=== PATIENT | female | born 1995 | race African-American/Black ===

== ENCOUNTER 2016-08-11 10:05 | Emergency (ER) | payer OTHER ==
[~2016-08-11] VITALS: Ht 180.3 cm; Wt 76.3 kg
[2016-08-11 10:05] VITALS: TEMP 39; Ht 180.3 cm; Wt 76.3 kg
[2016-08-11] MEDS ORDERED: KETOROLAC TROMETHAMINE 30 MG/ML VIAL IV STA (10:31)
[2016-08-11] MEDS ORDERED: SODIUM CHLORIDE 0.9% 1000ML 1,000 ML IV STA ×2 (10:31→13:16)
--- NOTE | 2016-08-11 10:39 | EMERGENCY ROOM VISIT NOTE ---
History Report prepared by Sari: Brian Thomason Under the Supervision of: Dr. Leeroy Osman D.O. First contact with patient: 10:23 Stated Complaint: SYNCOPE History of Present Illness The patient is a 21 year old female who presents to the Emergency Room with complaints of a sudden syncopal episode beginning just prior to arrival. She associates a cough, congestion, body aches, dizziness, and lightheadedness with today's symptoms. The patient notes she developed a cold two days ago and has been eating and drinking less than usual. She states she is currently on her menstrual period, but it is normal. The patient notes she went to the [employer] today to get Gatorade and saltines, when she became nauseous , dizzy, and her vision went blurry. She denies sick contact. The patient notes a history of asthma and tonsillectomy. Source of History: patient Onset: just prior to arrival Position: other (global) Quality: other (syncope) Timing: other (sudden) Associated Symptoms: + cough Note: Associated symptoms: congestion, body aches, dizziness, lightheadedness. Review of Systems See HPI for pertinent positives & negatives. A total of 10 systems reviewed and were otherwise negative. Past Medical & Surgical Medical Problems: (1) Asthma Surgical Problems: (1) S/P tonsillectomy Family History Patient reports no known family medical history. Social History Marital Status: single Housing Status: lives alone Occupation Status: [employer] student Current/Historical Medications No Active Prescriptions or Reported Meds Allergies Coded Allergies: No Known Allergies (Unverified , 08/11/16) Physical Exam Vital Signs Date Time Temp Pulse Resp B/P Pulse Ox O2 Delivery O2 Flow Rate FiO2 08/11/16 13:51 61 18 109/65 100 Room Air 08/11/16 11:47 89 18 130/82 100 Room Air 08/11/16 11:09 109 08/11/16 10:05 39.0 104 20 126/92 100 Room Air Physical Exam GENERAL: Patient is awake, alert, and in no acute distress. Patient is resting comfortably and showing no signs of anxiety EYES: The conjunctivae are clear. The pupils are round and reactive. EARS, NOSE, MOUTH AND THROAT: The nose is without any evidence of any deformity. Clear rhinorrhea noted bilaterally. Mucous membranes are moist. No erythema in the posterior oral pharynx. NECK: The neck is nontender and supple. RESPIRATORY: Scattered rhonchi noted throughout. Diminished breath sounds in right upper lung field. No tachypnea or conversational dyspnea. CARDIOVASCULAR: Regular rate and rhythm noted there no murmurs rubs or gallops normal S1 normal S2 GASTROINTESTINAL: The abdomen is soft. Bowel sounds are present in all quadrants. Abdomen is nontender MUSCULOSKELETAL/EXTREMITIES: There is no evidence of gross deformity full range of motion is noted in the hips and shoulders SKIN: There is no obvious evidence of any rash. There are no petechiae, pallor or cyanosis noted. NEUROLOGIC: Patient is awake alert and oriented x3 strength is symmetric patellar reflexes are 2+ bilaterally Medical Decision & Procedures ER Provider Diagnostic Interpretation: X-ray results as stated below per interpretation by me and the radiologist. CHEST ONE VIEW PORTABLE CLINICAL HISTORY: Syncope. COMPARISON STUDY: No previous studies for comparison. FINDINGS: Lung volumes are normal. There is no pneumothorax or pleural effusion. Cardiac size is normal. Mediastinal contours are normal. There is equivocal left perihilar opacity. IMPRESSION: Equivocal left perihilar opacity. This likely reflects normal vessels although a small area of pneumonia could appear similar. Radiographic follow-up is recommended with PA and lateral chest radiographs in one month. Electronically signed by: Jaren Jimenez M.D. 08/11/2016 10:45 AM Laboratory Results 08/11/16 11:42 Red Blood Count 5.48, Mean Corpuscular Volume 73.4, Mean Corpuscular Hemoglobin 25.2, Mean Corpuscular Hemoglobin Concent 34.3, Mean Platelet Volume 10.3, Neutrophils (%) (Auto) 82.2, Lymphocytes (%) (Auto) 8.6, Monocytes (%) (Auto) 8.7, Eosinophils (%) (Auto) 0.2, Basophils (%) (Auto) 0.1, Neutrophils # (Auto) 7.46, Lymphocytes # (Auto) 0.78, Monocytes # (Auto) 0.79, Eosinophils # (Auto) 0.02, Basophils # (Auto) 0.01 08/11/16 11:42 Test 08/11/16 10:21 08/11/16 11:30 08/11/16 11:42 Urine Color YELLOW Urine Appearance CLEAR (CLEAR) Urine pH 6.5 (4.5-7.5) Urine Specific [place] 1.014 (1.000-1.030) Urine Protein NEG (NEG) Urine Glucose (UA) NEG (NEG) Urine Ketones NEG (NEG) Urine Occult Blood 1+ (NEG) Urine Nitrite NEG (NEG) Urine Bilirubin NEG (NEG) Urine Urobilinogen NEG (NEG) Urine Leukocyte Esterase NEG (NEG) Urine WBC (Auto) 1-5 /hpf (0-5) Urine RBC (Auto) 0-4 /hpf (0-4) Urine Hyaline Casts (Auto) 0 /lpf (0-5) Urine Epithelial Cells (Auto) >30 /lpf (0-5) Urine Bacteria (Auto) NEG (NEG) Urine Test NEG (NEG) Influenza Type A Antigen Neg for Influ A (NEG) Influenza Type B Antigen POS for Influ B (NEG) White Blood Count 9.08 K/uL (4.8-10.8) Red Blood Count 5.48 M/uL (4.2-5.4) Hemoglobin 13.8 g/dL (12.0-16.0) Hematocrit 40.2 % (37-47) Mean Corpuscular Volume 73.4 fL (80-100) Mean Corpuscular Hemoglobin 25.2 pg (25-34) Mean Corpuscular Hemoglobin Concent 34.3 g/dl (32-36) Platelet Count 226 K/uL (130-400) Mean Platelet Volume 10.3 fL (7.4-10.4) Neutrophils (%) (Auto) 82.2 % Lymphocytes (%) (Auto) 8.6 % Monocytes (%) (Auto) 8.7 % Eosinophils (%) (Auto) 0.2 % Basophils (%) (Auto) 0.1 % Neutrophils # (Auto) 7.46 K/uL (1.4-6.5) Lymphocytes # (Auto) 0.78 K/uL (1.2-3.4) Monocytes # (Auto) 0.79 K/uL (0.11-0.59) Eosinophils # (Auto) 0.02 K/uL (0-0.5) Basophils # (Auto) 0.01 K/uL (0-0.2) RDW Standard Deviation 38.9 fL (36.4-46.3) RDW Coefficient of Variation 14.7 % (11.5-14.5) Immature Granulocyte % (Auto) 0.2 % Immature Granulocyte # (Auto) 0.02 K/uL (0.00-0.02) Red Blood Cell Morphology Unremarkable Anion Gap 9.0 mmol/L (3-11) Est Creatinine Clear Calc Drug Dose 130.2 ml/min Estimated GFR () 128.8 Estimated GFR (Non- 111.1 BUN/Creatinine Ratio 11.1 (10-20) Calcium Level 9.0 mg/dl (8.5-10.1) Total Bilirubin 0.2 mg/dl (0.2-1) Direct Bilirubin < 0.1 mg/dl (0-0.2) Aspartate Amino Transf (AST/SGOT) 15 U/L (15-37) Alanine Aminotransferase (ALT/SGPT) 17 U/L (12-78) Alkaline Phosphatase 45 U/L (45-117) Troponin I < 0.015 ng/ml (0-0.045) Total Protein 8.1 gm/dl (6.4-8.2) Albumin 3.8 gm/dl (3.4-5.0) Lipase 111 U/L (73-393) Laboratory results per my review. Medications Administered Medications (Trade) Dose Ordered Sig/Liyah Route Start Time Stop Time Status Last Admin Dose Admin Ketorolac Tromethamine 30 mg 30 mg NOW STAT IV 08/11/16 10:31 08/11/16 10:32 DC 08/11/16 11:45 30 MG Sodium Chloride (Nss 1000ml) 1,000 ml @ 999 mls/hr Q1H1M STAT IV 08/11/16 10:31 08/11/16 11:31 DC 08/11/16 10:31 999 MLS/HR Acetaminophen 1000 mg 1,000 mg NOW STAT PO 08/11/16 12:19 08/11/16 12:20 DC 08/11/16 12:44 1,000 MG Sodium Chloride (Nss 1000ml) 1,000 ml @ 999 mls/hr Q1H1M STAT IV 08/11/16 13:16 08/11/16 14:16 DC 08/11/16 13:16 999 MLS/HR ECG Indication: syncope Rate (beats per minute): 105 Rhythm: sinus tachycardia Findings: no ectopy, other (No acute ST segment abnormalities) Comparison ECG Date: no prior available ED Course 1027: The patient was evaluated in room A3. A complete history and physical examination were performed. 1031: Ordered Sodium Chloride 1,000 ml @ 999 mls/hr IV, Toradol Inj 30 mg IV. 1216: Reevaluated and updated the patient at this time. 1219: Ordered Tylenol Tab 1,000 mg PO. 1315: Reevaluated and updated the patient at this time. 1316: Ordered Sodium Chloride 1,000 ml @ 999 mls/hr IV. 1410: Upon reevaluation, the patient is doing well. I discussed the results and treatment plan with her. She verbalized agreement of the treatment plan. The patient was discharged home. Medical Decision Etiologies such as vasovagal event, infection, hypoglycemia, electrolyte abnormalities, cardiac sources, intracerebral event, toxicologic, neurologic, as well as others were entertained. Nursing notes reviewed. The patient is a 21-year-old female who presented to the emergency department for an evaluation after having a syncopal episode. The patient has been feeling as though she had a febrile illness with URI symptoms. The patient was found have a positive influenza screen. She was treated with IV fluids IV pain medication in the emergency department. I discussed the patient's laboratory and radiographic studies with her. She was encouraged to rest and avoid any strenuous activity. She started having symptoms more than 48 hours ago so I do not feel Tamiflu would be indicated in this patient although she does have a history of asthma. I discussed follow-up with the patient. I encouraged her to rest and avoid any strenuous activity. She was encouraged to drink plenty clear liquids. She was also encouraged to follow-up with [facility] this week for reevaluation and for further studies including echocardiogram and Holter monitor. She was also encouraged return to emergency department immediately if symptoms change worsen or the need arises. Impression Primary Impression: Syncope Additional Impression: Influenza Scribe Attestation The scribe's documentation has been prepared under my direction and personally reviewed by me in its entirety. I confirm that the note above accurately reflects all work, treatment, procedures, and medical decision making performed by me. Departure Information Dispostion Home / Self-Care Prescriptions No Active Prescriptions or Reported Meds Forms HOME CARE DOCUMENTATION FORM, IMPORTANT VISIT INFORMATION Patient Instructions ED Flu, [facility], Syncope Additional Instructions Continue all medications as prescribed. Drink plenty clear liquids. Continue using Motrin and Tylenol as directed for fever and body aches. Follow-up with [facility] this week for reevaluation. Problem Qualifiers Primary Impression: Syncope Syncope type: unspecified Qualified Codes: R55 - Syncope and collapse
--- NOTE | 2016-08-11 10:46 | DIAGNOSTIC IMAGING REPORT ---
CHEST ONE VIEW PORTABLE CLINICAL HISTORY: Syncope. COMPARISON STUDY: No previous studies for comparison. FINDINGS: Lung volumes are normal. There is no pneumothorax or pleural effusion. Cardiac size is normal. Mediastinal contours are normal. There is equivocal left perihilar opacity. IMPRESSION: Equivocal left perihilar opacity. This likely reflects normal vessels although a small area of pneumonia could appear similar. Radiographic follow-up is recommended with PA and lateral chest radiographs in one month. Electronically signed by: Jaren Jimenez M.D. 08/11/2016 10:45 AM Dictated Date/Time: 08/11/2016 10:43 AM
[2016-08-11 10:59] LABS: URINE APPEARANCE CLEAR (CLEAR); URINE BILIRUBIN NEG (NEG); URINE COLOR YELLOW; URINE EPITHELIAL CELL AUTO >30 /lpf (0-5); URINE NITRITE NEG (NEG); URINE PH 6.5 (4.5-7.5); URINE SPECIFIC GRAVITY 1.014 (1.000-1.030); UROBILINOGEN NEG (NEG)
[2016-08-11 11:06] LABS: MANUAL MICROSCOPIC REQUIRED? NO; REVIEW REQ? NO
[2016-08-11 11:50] LABS: BASO % 0.1 %; BASO ABS # 0.01 K/uL (0-0.2); EOS % 0.2 %; HEMATOCRIT 40.2 % (37-47); IG% 0.2 %; LYMPH % 8.6 %; LYMPH ABS # 0.78 K/uL (1.2-3.4); MEAN CELL VOLUME 73.4 fL (80-100); MEAN CORPUSCULAR HEMOGLOBIN 25.2 pg (25-34); MEAN CORPUSCULAR HGB CONC 34.3 g/dl (32-36); MEAN PLATELET VOLUME 10.3 fL (7.4-10.4); MONO % 8.7 %; NEUT % 82.2 %; PLATELET COUNT 226 K/uL (130-400); RED BLOOD COUNT 5.48 M/uL (4.2-5.4); WHITE BLOOD COUNT 9.08 K/uL (4.8-10.8)
[2016-08-11 12:07] LABS: ALT/SGPT 17 U/L (12-78); AST/SGOT 15 U/L (15-37); BLOOD UREA NITROGEN 9 mg/dl (7-18); BUN/CREATININE RATIO 11.1 (10-20); CARBON DIOXIDE 26 mmol/L (21-32); CHLORIDE 105 mmol/L (98-107); CREATININE 0.77 mg/dl (0.60-1.20); GLUCOSE 86 mg/dl (70-99); POTASSIUM 3.8 mmol/L (3.5-5.1); SODIUM 140 mmol/L (136-145)
[2016-08-11 12:10] LABS: COMPLETE YES
[2016-08-11 12:12] LABS: ALKALINE PHOSPHATASE 45 U/L (45-117)
[2016-08-11] MEDS ORDERED: ACETAMINOPHEN 500 MG TAB PO STA (12:19)
[2016-08-11 14:44] VITALS: BP 106/80; PULSE 63; O2SAT 100
== END 2016-08-11 14:45 | disposition home or self-care (01) ==
LOC: EDBD 10:05 → C.EDA 10:07
DX: R55 Syncope and collapse (principal); J10.1 Influenza due to other identified influenza virus with other respiratory manifestations; J45.909 Unspecified asthma, uncomplicated